=== PATIENT | female | born 1945 | race Caucasian/White ===

== ENCOUNTER → 2017-05-21 | Outpatient (CLI) | payer OTHER ==
[2017-05-21 09:52] LABS: CREATININE 1.3 mg/dL (0.6-1.0)
== END ==
LOC: LABMALL 09:23
PROVIDERS: Nurse Practitioner
DX: K92.1 Melena (principal); R10.9 Unspecified abdominal pain; Z85.528 Personal history of other malignant neoplasm of kidney

== ENCOUNTER 2018-02-07 15:10 | Emergency (ER) | payer OTHER ==
[~2018-02-07] VITALS: Ht 144.8 cm; Wt 70.3 kg
--- NOTE | ~2018-02-07 | EKG ---
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
[2018-02-07] MEDS ORDERED: COREG6.25 MG PO (16:03)
[2018-02-07] MEDS ORDERED: ASPIR 8181 MG PO (16:03)
[2018-02-07 16:22] LABS: EOSINOPHILS 1.6 % (0.0-3.0); HEMATOCRIT 36.4 % (37.0-47.0); HEMOGLOBIN 11.8 gm/dL (12.0-15.0); LYMPHOCYTES 43.8 % (24.0-44.0); MCH 26.7 pg (26.0-34.0); MCHC 32.6 g/dL (28.0-37.0); MCV 81.8 fL (80.0-100.0); MONOCYTES 7.9 % (1.0-8.0); PLATELET COUNT 289 thou/uL (150-400); POLYS 45.7 % (36.0-66.0); RBC 4.44 mil/uL (4.20-5.00); RDW 15.9 % (10.5-14.5)
[2018-02-07 16:33] LABS: ANION GAP 7 mmol/L (7-16); BUN 25 mg/dL (7-18); CALCIUM 9.8 mg/dL (8.5-10.1); CHLORIDE 104 mmol/L (98-107); CO2 28 mmol/L (21-32); CREATININE 1.4 mg/dL (0.6-1.0); GLUCOSE 130 mg/dL (74-106); POTASSIUM 4.5 mmol/L (3.5-5.1); SODIUM 139 mmol/L (136-145)
[2018-02-07 16:39] LABS: TROPONIN-I < 0.04 ng/mL (<0.06)
[2018-02-07 17:47] VITALS: BP 117/68
[2018-02-07] MEDS ORDERED: CLARITIN10 M2 PO (17:48)
[2018-02-07] MEDS ORDERED: FLONASE 0.05%50 MCG NASAL (17:59)
== END 2018-02-07 18:29 | disposition home or self-care (01) ==
LOC: ER 15:10
PROVIDERS: Physician Assistant
DX: H65.91 Unspecified nonsuppurative otitis media, right ear (principal); R42 Dizziness and giddiness; I10 Essential (primary) hypertension; Z88.5 Allergy status to narcotic agent; Z88.0 Allergy status to penicillin

== ENCOUNTER 2018-02-23 12:48 | Emergency (ER) | payer OTHER ==
[~2018-02-23] VITALS: Ht 144.8 cm; Wt 69.4 kg
--- NOTE | ~2018-02-23 | EKG ---
[place] [address] 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1945 Requested By: Park Khoury Order Number: [id number] MD: Nolan Wilson Measurements Intervals [place] Rate: 83 P: 7 CO: 163 QRS: -26 QRSD: 84 T: 12 QT: 352 QTc: 414 Interpretive Statements Sinus rhythm Atrial premature complex Poor R wave progression Compared to ECG 02/07/2018 16:11:29 Atrial premature complex(es) now present Electronically Signed On 02-25-2018 16:49:31 CDT by Nolan Wilson [email or web address] <ELECTRONICALLY SIGNED> By: Nolan Wilson MD, [facility] 02/25/18 1649 1253 1253 Nolan Wilson MD, [facility] /EPI
[~2018-02-23 12:48] MED LIST: ASPIR 8181 MG PO; CLARITIN10 M2 PO; COREG6.25 MG PO; FLONASE 0.05%50 MCG NASAL
[2018-02-23 13:14] LABS: ABSOLUTE NEUTROPHILS 7.3 thou/uL (1.4-8.2); BASOPHILS 0.7 % (0.0-2.0); EOSINOPHILS 0.4 % (0.0-3.0); HEMATOCRIT 29.1 % (37.0-47.0); HEMOGLOBIN 9.9 gm/dL (12.0-15.0); LYMPHOCYTES 31.6 % (24.0-44.0); MCHC 33.9 g/dL (28.0-37.0); MCV 79.6 fL (80.0-100.0); MONOCYTES 9.4 % (1.0-8.0); PLATELET COUNT 264 thou/uL (150-400); POLYS 57.9 % (36.0-66.0); RBC 3.65 mil/uL (4.20-5.00); RDW 16.3 % (10.5-14.5); WBC 12.6 thou/uL (4.0-11.0)
[2018-02-23 13:21] LABS: ANION GAP 7 mmol/L (7-16); BUN 18 mg/dL (7-18); CALCIUM 8.7 mg/dL (8.5-10.1); CHLORIDE 99 mmol/L (98-107); CO2 26 mmol/L (21-32); CREATININE 1.3 mg/dL (0.6-1.0); GLUCOSE 115 mg/dL (74-106); POTASSIUM 3.7 mmol/L (3.5-5.1); SODIUM 132 mmol/L (136-145)
[2018-02-23 13:30] LABS: ALBUMIN 3.4 g/dL (3.4-5.0); SGOT 20 U/L (15-37); SGPT 29 U/L (30-65); TOTAL BILIRUBIN 0.5 mg/dL (<0.1-1.0); TOTAL PROTEIN 7.4 g/dL (6.4-8.2); TROPONIN-I <0.06 ng/mL (<0.06)
[2018-02-23] MEDS ORDERED: POTASSIUM20 PO (14:02)
[2018-02-23] MEDS ORDERED: LASIX 40 MG TAB40 M2 PO (14:02)
[2018-02-23] MEDS ORDERED: LIDOCAINE1 EACH TRANSDERM (14:08)
[2018-02-23 14:57] VITALS: BP 152/79
== END 2018-02-23 14:58 | disposition home or self-care (01) ==
LOC: ER 12:48
PROVIDERS: Physician Assistant
DX: J81.0 Acute pulmonary edema (principal); I10 Essential (primary) hypertension; Z88.5 Allergy status to narcotic agent; Z88.0 Allergy status to penicillin

== ENCOUNTER → 2018-03-04 | Outpatient (CLI) | payer OTHER ==
[~2018-03-04] MED LIST changes: +LASIX 40 MG TAB40 M2 PO; +LIDOCAINE1 EACH TRANSDERM; +POTASSIUM20 PO
--- NOTE | ~2018-03-04 | 2DMMODE ---
[facility] [place] [address] 2 D/M-MODE ECHOCARDIOGRAM Name: JULIETTE SANTIAGO Room #: REG [facility]#: [id number] Admission: 03/04/18 Attend Phys: Nehemias Coy, Discharge: Date of : 45 Date of Service: 03/04/18 1101 Report #: [id number] THIS REPORT FOR: //name// APPROVED REPORT Study performed: 03/04/2018 10:09:26 EXAM: Comprehensive 2D, Doppler, and color-flow Echocardiogram Patient Location: Out-Patient Status: routine BSA: 1.61 HR: 68 bpm BP: 142/78 mmHg Rhythm: NSR/arrhythmia Other Information Study Quality: Good Indications Congestive heart failure, short of breath. Hx: CAD, stent, HTN 2D Dimensions RVDd: 31.72 mm LVEF(%): 52.69 (>50%) IVSd: 11.51 (7-11mm) LVOT Diam: 19.14 (18-24mm) LVDd: 33.56 mm PWd: 9.30 (7-11mm) Ascending Ao: 35.83 (22-36mm) LVDs: 24.74 (25-40mm) Aortic Root: 32.50 mm Dickinson's LVEF: 52.69 % Volumes Left Atrial Volume (Systole) Single Plane 4CH: 42.83 mL Single Plane 2CH: 42.51 mL LA ESV Index: 28.00 mL/m2 Aortic Valve AoV Peak Pepe.: 1.86 m/s AO Peak Gr.: 12.89 mmHg LVOT Max P.05 mmHg AO Mean Gr.: 7.02 mmHg AO V2 Mean: 1.26 m/s LVOT Max V: 1.12 m/s AO V2 VTI: 41.92 cm MAL Vmax: 1.74 cm2 Mitral Valve [facility] [place] [address] 2 D/M-MODE ECHOCARDIOGRAM Name: JULIETTE SANTIAGO Room #: REG [facility]#: [id number] Admission: 03/04/18 Attend Phys: Nehemias Coy, Discharge: Date of : 45 Date of Service: 03/04/18 1101 Report #: [id number] E/A Ratio: 0.7 MV Decel. Time: 312.34 ms MV E Max Pepe.: 0.84 m/s MV A Pepe.: 1.13 m/s MV PHT: 90.58 ms IVRT: 110.73 ms Pulmonary Valve PV Peak Pepe.: 1.16 m/s PV Peak Gr.: 5.42 mmHg Pulmonary Vein P Vein S: 0.38 m/s P Vein D: 0.24 m/s P Vein S/D Ratio: 1.58 Tricuspid Valve TR Peak Pepe.: 2.34 m/s RAP Estimate: 5.00 mmHg TR Peak Gr.: 21.87 mmHg PA Pressure: 27.00 mmHg Left Ventricle The left ventricle is normal size. There is normal LV segmental wall motion. There is normal left ventricular wall thickness. Left ventricular systolic function is normal. LVEF is 55%. Mild diastolic dysfunction is present (impaired relaxation pattern). Right Ventricle The right ventricle is normal size. The right ventricular systolic function is normal. Atria The left atrium size is normal. The right atrium size is normal. Aortic Valve The Aortic valve is moderately sclerotic. Trace aortic regurgitation. There is no aortic valvular stenosis. Mitral Valve Mitral valve leaflets are mildly thickened and calcified. Mild mitral annular calcification. Mild mitral regurgitation. No evidence of mitral valve stenosis. Tricuspid Valve The tricuspid valve is normal in structure. Mild tricuspid regurgitation. Estimated PAP is 25-30mmHg. [address] [address] 2 D/M-MODE ECHOCARDIOGRAM Name: JULIETTE SANTIAGO Room #: REG [facility]#: [id number] Admission: 03/04/18 Attend Phys: Nehemias Coy, Discharge: Date of : 45 Date of Service: 03/04/18 1101 Report #: [id number] Pulmonic Valve The pulmonary valve is normal in structure. Trace to mild pulmonic regurgitation. Great Vessels The aortic root is normal in size. The ascending aorta is normal in size. IVC is normal in size and collapses >50% with inspiration. Pericardium There is no pericardial effusion. <Conclusion> The left ventricle is normal size. There is normal left ventricular wall thickness. Left ventricular systolic function is normal. Mild diastolic dysfunction is present (impaired relaxation pattern). The right ventricle is normal size. The left atrium size is normal. The Aortic valve is moderately sclerotic. Trace aortic regurgitation. Mild mitral regurgitation. Mild tricuspid regurgitation. Estimated PAP is 25-30mmHg. <ELECTRONICALLY SIGNED> By: Gregorio Haider MD 03/04/18 1101 1101 110 Gregorio Haider MD /INF
== END ==
LOC: CV 09:55
DX: I08.1 Rheumatic disorders of both mitral and tricuspid valves (principal); I11.0 Hypertensive heart disease with heart failure; I25.10 Atherosclerotic heart disease of native coronary artery without angina pectoris; I50.9 Heart failure, unspecified

== ENCOUNTER 2018-03-26 14:28 | Emergency (ER) | payer OTHER ==
[~2018-03-26] VITALS: Ht 144.8 cm; Wt 69.8 kg
--- NOTE | ~2018-03-26 | EKG ---
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1945 Requested By: Larissa Jon Order Number: [id number] MD: Nolan Wilson Measurements Intervals [place] Rate: 55 P: 12 CO: 159 QRS: -23 QRSD: 91 T: 15 QT: 433 QTc: 415 Interpretive Statements Sinus bradycardia Abnormal R-wave progression, early transition Left ventricular hypertrophy Compared to ECG 02/23/2018 12:53:01 Atrial premature complex(es) no longer present Electronically Signed On 03-27-2018 7:59:39 CDT by Nolan Wilson [email or web address] <ELECTRONICALLY SIGNED> By: Nolan Wilson MD, [facility] 03/27/18 0759 1513 151 Nolan Wilson MD, [facility] /EPI
[~2018-03-26 14:28] MED LIST changes: +LEVAQUIN 500 M500 M2 PO
[2018-03-26] MEDS ORDERED: CARDIOTEK-RX T1 EACH PO (15:02)
[2018-03-26 15:06] LABS: ABSOLUTE NEUTROPHILS 5.2 thou/uL (1.4-8.2); BASOPHILS 0.3 % (0.0-2.0); HEMATOCRIT 39.3 % (37.0-47.0); HEMOGLOBIN 12.8 gm/dL (12.0-15.0); LYMPHOCYTES 45.9 % (24.0-44.0); MCH 26.7 pg (26.0-34.0); MCHC 32.7 g/dL (28.0-37.0); MCV 81.7 fL (80.0-100.0); MONOCYTES 8.1 % (1.0-8.0); PLATELET COUNT 338 thou/uL (150-400); POLYS 44.7 % (36.0-66.0); RBC 4.81 mil/uL (4.20-5.00); RDW 17.2 % (10.5-14.5); WBC 11.6 thou/uL (4.0-11.0)
[2018-03-26 15:10] LABS: ANION GAP 10 mmol/L (7-16); BUN 42 mg/dL (7-18); CALCIUM 9.3 mg/dL (8.5-10.1); CHLORIDE 99 mmol/L (98-107); CO2 28 mmol/L (21-32); CREATININE 1.7 mg/dL (0.6-1.0); GLUCOSE 120 mg/dL (74-106); POTASSIUM 3.6 mmol/L (3.5-5.1); SODIUM 137 mmol/L (136-145)
[2018-03-26 15:18] LABS: TROPONIN-I <0.06 ng/mL (<0.06)
[2018-03-26 16:59] VITALS: BP 115/51
== END 2018-03-26 17:00 | disposition home or self-care (01) ==
LOC: ER 14:28
PROVIDERS: Emergency Medicine
DX: R55 Syncope and collapse (principal); N17.9 Acute kidney failure, unspecified; E86.0 Dehydration; I10 Essential (primary) hypertension; K90.0 Celiac disease; Z88.5 Allergy status to narcotic agent; Z88.0 Allergy status to penicillin